=== PATIENT | male | born 1940 | race Caucasian/White ===

== ENCOUNTER 2017-07-11 15:03 | Inpatient (IN) | payer OTHER ==
[2017-07-11 15:56] VITALS: BMI 36.0
[2017-07-11] MEDS ORDERED: HYDROcodone /APAP 5/325 1 EACH TABLET PO PRN (17:23)
[2017-07-11] MEDS: APIXABAN 2.5 MG TABLET PO SCH ×2 (19:05→20:45)
[2017-07-11] MEDS: SENNOSIDES 8.6 MG TABLET PO SCH (19:15)
--- NOTE | 2017-07-11 19:26 | History and Physical Report ---
History of Present Illnes - History of Present Illness Reason for Visit: gait diaturbance following Right TKR History of Present Illness: Patient is a 77-year-old white male who is been having some problems with osteoarthritis to his knees bilaterally. Patient was electrically admitted to the [facility] for a total right knee replacement. Patient did not have any intraoperative or postoperative complications. Patient states it is pain as being well-managed at this time. Patient denies any constipation problems. Patient was subsequently transferred to this institution for further rehab services. 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 Alcohol: Rare Drugs: None Lives: Friends - Health Maintenance Health Maintenance: denies: Influenza Vaccine, Pneumococcal Vaccine Pneumonia Vaccine: No Resuscitation Status: Resusciation Status Resuscitation Status Full Code - Unable to Obtain History Unable to Obtain: No Review of Systems - Review of Systems Constitutional: negative: Fever, Chills, Weakness Eyes: negative: pain, vision change ENT: negative: Ear Pain, Ear Discharge, Nose Pain, Nose Discharge, Nose Congestion, Mouth Pain, Throat Pain Respiratory: negative: Cough, Dry, Shortness of Breath, Hemoptysis, SOB with Excertion, Pleuritic Pain, Sputum, Wheezing Cardiovascular: negative: Chest Pain, Palpitations, Orthopnea, Paroxysmal Noc. Dyspnea, Edema, Light Headedness Gastrointestinal: negative: Nausea, Vomiting, Abdominal Pain, Diarrhea, Constipation, Melena, Hematochezia Genitourinary: Frequency, Incontinence. negative: Dysuria, Hematuria, Retention Musculoskeletal: Leg Pain. negative: Neck Pain, Shoulder Pain Skin: negative: Rash, Lesions Neurological: negative: Weakness, Numbness, Incoordination, Change in Speech, Seizures - Medications/Allergies Allergies/Adverse Reactions: Allergies Allergy/AdvReac Type Severity Reaction Status Date / Time hydrocodone AdvReac Hallucinati Verified 07/11/17 16:17 ons morphine AdvReac Hallucinati Verified 07/11/17 16:17 ons Home Medications: Home Medications Bumetanide [Bumex] 2 mg PO D 07/16/17 Gabapentin 300 mg 07/16/17 HYDROcodone /APAP 5/325 [Devol 5/325] 1 each PO Q4 PRN 07/16/17 Lisinopril [Zestril] 40 mg PO D 07/16/17 Metoprolol Tartrate [Lopressor] 50 mg PO BID 07/16/17 Potassium Chloride [Klor-Con M20] 20 meq PO D 07/16/17 Sennosides [Senna] 8.6 mg PO BID PRN 07/16/17 Simvastatin [Zocor] 20 mg PO HS 07/16/17 Sulfamethoxazole/Trimethoprim [Bactrim DS] 1 tab PO BID 07/16/17 amLODIPine BESYLATE [Norvasc] 5 mg PO 0900 07/16/17 Current Inpatient Medications: Current Inpatient Medications Sennosides (Senokot) 8.6 mg PO DAILY [facility] Last Admin: 07/11/17 19:15 Dose: Not Given Trimethoprim/Sulfamethoxazole (Bactrim Ds) 1 each PO BID [facility] Stop: 07/16/17 20:59 Exam - Exam Vital Signs: Vital Signs (72 hours) 07/11/17 15:12 Temperature 98.4 F Pulse Rate [ 88 Left] Respiratory 20 Rate Blood Pressure 117/75 [Left Arm] General: Alert, Oriented to Person, Oriented to Place, Cooperative. No: Oriented to Time HEENT: Atraumatic, PERRLA, EOMI, Mouth Mucous membr. moist/Rison, Nose Mucous membr. moist/Rison Neck: Normal Range of Motion Carotids: WNL Thyroid: WNL Lungs: Clear to auscultation, Normal air movement, Speaks full Sentences Cardiovascular: Normal S1, Normal S2, No murmurs, Irregularly Irregular. No: Gallops, Rubs Abdomen: Normal bowel sounds, Soft, No tenderness, No hepatospenomegaly, No masses Integumentary: Normal, Rison, Warm, Dry Extremities: No clubbing, No cyanosis, Normal pulses, Other (Edema tothe RLE, incison looks clean) Neurological: Normal speech, Strength Equal Bilat, Normal tone, Sensation intact , Cranial nerves 3-12 NL, Reflexes 2+. No: Normal gait Psych/Mental Status: Mental status NL, Mood NL, Appropriate Affect, Intact Judgment Assessment/Plan - Assessment/Plan (1) Gait disturbance Status: Acute Current Visit: Yes Assessment: PT and OT, continue with polar ice and support stockings. (2) Atrial fibrillation Status: Acute Current Visit: Yes Assessment: Will switch to eliquis since pradaxa is not on formulary (3) Idiopathic peripheral neuropathy Status: Acute Current Visit: Yes Assessment: continue home med (4) Left bundle branch block (LBBB) Status: Acute Current Visit: Yes Assessment: stable (5) CKD (chronic kidney disease) stage 3, GFR 30-59 ml/min Status: Acute Current Visit: Yes Assessment: will continue to monitor VTE Assessment - RISK FACTOR SCORE VTE RISK FACTOR SCORES: AGE OVER 60 YEARS, ANTICIPATED BED CONFINEMENT OR IMMOBILIZATION > 24 HOURS, ELECTIVE KNEE OR HIP ARTHROPLASTY - RISK VTE HIGH RISK: SCORE OF 3-4 (RISK PROXIMAL DVT 4-8%) PROPHYLAXIS NEEDED
[2017-07-11] MEDS: SULFAMETHOXAZOLE/TRIMETHOPRIM 1 EACH TABLET PO SCH (20:42)
[2017-07-12] MEDS ORDERED: MAGNESIUM HYDROXIDE 400 MG/5 ML 30ML UDC PO ONE (08:57)
[2017-07-12] MEDS: SULFAMETHOXAZOLE/TRIMETHOPRIM 1 EACH TABLET PO SCH ×2 (10:29→20:38)
[2017-07-12] MEDS: TOLTERODINE TARTRATE 2 MG CAP.ER.24H PO SCH (10:30)
[2017-07-12] MEDS: GABAPENTIN 300 MG CAPSULE PO SCH ×2 (10:30→20:38)
[2017-07-12] MEDS: POTASSIUM CHLORIDE 20 MEQ TABLET.ER PO SCH (10:30)
[2017-07-12] MEDS: APIXABAN 2.5 MG TABLET PO SCH ×2 (10:30→20:38)
[2017-07-12] MEDS: FUROSEMIDE 40 MG TABLET PO SCH (10:30)
[2017-07-12] MEDS: SENNOSIDES 8.6 MG TABLET PO SCH (10:31)
[2017-07-12] MEDS: amLODIPine BESYLATE 5 MG TABLET PO SCH (10:31)
[2017-07-12] MEDS: LISINOPRIL 20 MG TABLET PO SCH (10:31)
[2017-07-12] MEDS ORDERED: SIMVASTATIN 20 MG TABLET ONE (14:06)
[2017-07-12] MEDS: SIMVASTATIN 20 MG TABLET PO SCH (20:38)
[2017-07-13] MEDS: TOLTERODINE TARTRATE 2 MG CAP.ER.24H PO SCH (08:20)
[2017-07-13] MEDS: SULFAMETHOXAZOLE/TRIMETHOPRIM 1 EACH TABLET PO SCH ×2 (08:20→20:51)
[2017-07-13] MEDS: APIXABAN 2.5 MG TABLET PO SCH ×2 (08:21→20:52)
[2017-07-13] MEDS: FUROSEMIDE 40 MG TABLET PO SCH (08:22)
[2017-07-13] MEDS: POTASSIUM CHLORIDE 20 MEQ TABLET.ER PO SCH (08:22)
[2017-07-13] MEDS: LISINOPRIL 20 MG TABLET PO SCH (08:23)
[2017-07-13] MEDS: GABAPENTIN 300 MG CAPSULE PO SCH ×2 (08:23→20:51)
[2017-07-13] MEDS: amLODIPine BESYLATE 5 MG TABLET PO SCH (08:23)
[2017-07-13] MEDS: ACETAMINOPHEN 325 MG TABLET PO PRN ×2 (08:24→12:38)
[2017-07-13] MEDS: SENNOSIDES 8.6 MG TABLET PO SCH (08:25)
[2017-07-13] MEDS: SIMVASTATIN 20 MG TABLET PO SCH (20:51)
[2017-07-14] MEDS: APIXABAN 2.5 MG TABLET PO SCH ×2 (08:38→21:13)
[2017-07-14] MEDS: SENNOSIDES 8.6 MG TABLET PO SCH (08:38)
[2017-07-14] MEDS: FUROSEMIDE 40 MG TABLET PO SCH (08:40)
[2017-07-14] MEDS: LISINOPRIL 20 MG TABLET PO SCH (08:40)
[2017-07-14] MEDS: SULFAMETHOXAZOLE/TRIMETHOPRIM 1 EACH TABLET PO SCH ×2 (08:40→21:13)
[2017-07-14] MEDS: amLODIPine BESYLATE 5 MG TABLET PO SCH (08:40)
[2017-07-14] MEDS: GABAPENTIN 300 MG CAPSULE PO SCH ×2 (08:40→21:13)
[2017-07-14] MEDS: TOLTERODINE TARTRATE 2 MG CAP.ER.24H PO SCH (08:40)
[2017-07-14] MEDS: POTASSIUM CHLORIDE 20 MEQ TABLET.ER PO SCH (08:40)
[2017-07-14 10:02] LABS: BASOPHILS % 0.3 (0.0-1.5); EOSINOPHILS % 5.4 % (0.0-6.8); MEAN CORPUSCULAR HEMOGLOBIN 30.4 pg (28.0-34.0); MEAN CORPUSCULAR VOLUME 90.4 fl (80.0-100.0); MONOCYTES % 6.8 % (0.0-11.0); NEUTROPHILS # 8.4 # k/uL (1.4-7.7)
[2017-07-14] MEDS: ACETAMINOPHEN 500 MG TABLET PO PRN ×2 (13:43→21:12)
[2017-07-14] MEDS: SIMVASTATIN 20 MG TABLET PO SCH (21:13)
[2017-07-15] MEDS: SULFAMETHOXAZOLE/TRIMETHOPRIM 1 EACH TABLET PO SCH ×2 (08:45→18:12)
[2017-07-15] MEDS: TOLTERODINE TARTRATE 2 MG CAP.ER.24H PO SCH (08:45)
[2017-07-15] MEDS: APIXABAN 2.5 MG TABLET PO SCH ×2 (08:45→18:11)
[2017-07-15] MEDS: FUROSEMIDE 40 MG TABLET PO SCH (08:46)
[2017-07-15] MEDS: POTASSIUM CHLORIDE 20 MEQ TABLET.ER PO SCH (08:46)
[2017-07-15] MEDS: LISINOPRIL 20 MG TABLET PO SCH (08:47)
[2017-07-15] MEDS: GABAPENTIN 300 MG CAPSULE PO SCH ×2 (08:47→18:10)
[2017-07-15] MEDS: amLODIPine BESYLATE 5 MG TABLET PO SCH (08:47)
[2017-07-15] MEDS: SENNOSIDES 8.6 MG TABLET PO SCH (08:48)
[2017-07-15] MEDS: ACETAMINOPHEN 500 MG TABLET PO PRN ×3 (09:08→18:10)
[2017-07-15] MEDS: SIMVASTATIN 20 MG TABLET PO SCH (18:12)
[2017-07-16] MEDS: ACETAMINOPHEN 500 MG TABLET PO PRN ×3 (06:06→19:33)
[2017-07-16] MEDS: APIXABAN 2.5 MG TABLET PO SCH ×2 (11:19→19:33)
[2017-07-16] MEDS: SENNOSIDES 8.6 MG TABLET PO SCH (11:20)
[2017-07-16] MEDS: POTASSIUM CHLORIDE 20 MEQ TABLET.ER PO SCH (11:21)
[2017-07-16] MEDS: SULFAMETHOXAZOLE/TRIMETHOPRIM 1 EACH TABLET PO SCH (11:21)
[2017-07-16] MEDS: FUROSEMIDE 40 MG TABLET PO SCH (11:22)
[2017-07-16] MEDS: GABAPENTIN 300 MG CAPSULE PO SCH ×2 (11:22→19:33)
[2017-07-16] MEDS: amLODIPine BESYLATE 5 MG TABLET PO SCH (11:23)
[2017-07-16] MEDS: TOLTERODINE TARTRATE 2 MG CAP.ER.24H PO SCH (11:23)
[2017-07-16] MEDS: LISINOPRIL 20 MG TABLET PO SCH (11:24)
[2017-07-16 18:52] LABS: APPEARANCE,URINE Clear (CLEAR); COLOR,URINE Yellow (YELLOW); OCCULT BLOOD,URINE Trace-lysed (NEGATIVE); PH URINE 5.5 (5.0 - 8.0); UROBILINOGEN URINE 0.2 Eu (0.2-1.0)
[2017-07-16] MEDS: SIMVASTATIN 20 MG TABLET PO SCH (19:33)
[2017-07-17] MEDS: ACETAMINOPHEN 500 MG TABLET PO PRN ×3 (05:59→20:32)
--- NOTE | 2017-07-17 07:52 | Inpatient Progress Note ---
Subjective - Required Recertification Statement I anticipate X number of days because-include discharge plan: 10 days - Review of Systems Events since last encounter: Patient seems to be doing better at this AM. States that his knee is feeling some better. Objective - Exam Vitals and I&O: Vital Signs Temp 97.9 F 07/16/17 20:49 Pulse 64 07/16/17 21:00 Resp 20 07/16/17 21:00 BP 129/57 07/16/17 20:49 Pulse Ox 92 07/16/17 20:49 Intake & Output 07/16/17 07/16/17 07/17/17 11:59 23:59 11:59 Intake Total 1979 1180 2720 Balance 1979 1180 2720 Weight 107.048 kg Intake: Oral 1979 1180 2720 Other: Voiding Method Toilet Toilet # Voids 8 8 General: Alert, Oriented to Person, Cooperative. No: Oriented to Place, Oriented to Time Neck: Supple, No JVD Lungs: Clear to auscultation, Normal air movement, Speaks full Sentences. No: Respiratory Distress, Wheezes, Rales Cardiovascular: Regular rate, Normal S1, Normal S2, No murmurs Abdomen: Normal bowel sounds, Soft, No tenderness Skin: Other (less swelling, still having some pain at the distal aspect oftheincision, no redness noted. ) Neurological: Normal speech, Strength Equal Bilat - Results Results: Laboratory Results WBC 10.90 K/ul (4.00-12.00) 07/14/17 09:55 RBC 4.06 M/ul (3.90-5.20) 07/14/17 09:55 Hgb 12.3 g/dL (12.0-18.0) 07/14/17 09:55 Hct 36.7 % (37.0-53.0) L 07/14/17 09:55 MCV 90.4 fl (80.0-100.0) 07/14/17 09:55 MCH 30.4 pg (28.0-34.0) 07/14/17 09:55 MCHC 33.6 g/dL (30.0-36.0) 07/14/17 09:55 RDW 13.0 % (11.3-14.3) 07/14/17 09:55 Plt Count 325 K/mm3 (130-400) 07/14/17 09:55 Neut % (Auto) 76.9 % (39.0-79.0) 07/14/17 09:55 Lymph % (Auto) 9.1 % (16.0-50.0) L 07/14/17 09:55 [place] % (Auto) 6.8 % (0.0-11.0) 07/14/17 09:55 Eos % (Auto) 5.4 % (0.0-6.8) 07/14/17 09:55 Baso % (Auto) 0.3 (0.0-1.5) 07/14/17 09:55 Neut # (Auto) 8.4 # k/uL (1.4-7.7) H 07/14/17 09:55 Lymph # (Auto) 1.0 # k/uL (0.6-4.0) 07/14/17 09:55 [place] # (Auto) 0.7 # k/uL (0.0-0.9) 07/14/17 09:55 Eos # (Auto) 0.6 # k/uL (0.0-0.6) 07/14/17 09:55 Baso # (Auto) 0.0 # k/uL (0.0-0.5) 07/14/17 09:55 Reactive Lymphs % 1.5 % (0.0-5.0) 07/14/17 09:55 Reactive Lymphs # 0.2 # k/uL (0.0-0.8) 07/14/17 09:55 Sodium 138 mmol/L (136-145) 07/14/17 09:55 Potassium 4.5 mmol/L (3.5-5.0) 07/14/17 09:55 Chloride 103 mmol/L (98-110) 07/14/17 09:55 Carbon Dioxide 28 mmol/L (20-32) 07/14/17 09:55 BUN 37 mg/dL (10-26) H 07/14/17 09:55 Creatinine 2.2 mg/dL (0.4-1.5) H 07/14/17 09:55 Estimated Creat Clear 43 07/14/17 09:55 Est GFR ( Amer) 38 (60-) L 07/14/17 09:55 Est GFR (Non-Af Amer) 31 (60-) L 07/14/17 09:55 Glucose 124 mg/dL (70-99) H 07/14/17 09:55 Calcium 9.7 mg/dL (8.5-10.5) 07/14/17 09:55 Total Bilirubin 0.8 mg/dL (0.2-1.2) 07/14/17 09:55 AST 29 U/L (0-41) 07/14/17 09:55 ALT 35 U/L (0-45) 07/14/17 09:55 Alkaline Phosphatase 86 U/L (46-116) 07/14/17 09:55 Total Protein 7.0 g/dL (6.0-8.5) 07/14/17 09:55 Albumin 3.8 g/dL (3.0-5.5) 07/14/17 09:55 Urine Color Yellow (YELLOW) 07/16/17 18:45 Urine Appearance Clear (CLEAR) 07/16/17 18:45 Urine pH 5.5 (5.0 - 8.0) 07/16/17 18:45 Ur Specific [place] <=1.005 (1.010-1.030) L 07/16/17 18:45 Urine Protein Negative mg/dL (NEGATIVE) 07/16/17 18:45 Urine Ketones Negative mg/dL (NEGATIVE) 07/16/17 18:45 Urine Occult Blood Trace-lysed (NEGATIVE) 07/16/17 18:45 Urine Nitrite Negative (NEGATIVE) 07/16/17 18:45 Urine Bilirubin Negative (NEGATIVE) 07/16/17 18:45 Urine Urobilinogen 0.2 Eu (0.2-1.0) 07/16/17 18:45 Ur Leukocyte Esterase Trace (NEGATIVE) 07/16/17 18:45 Urine Glucose Negative mg/dL (NEGATIVE) 07/16/17 18:45 Assessment/Plan - Assessment/Plan (1) Gait disturbance Status: Acute Current Visit: Yes Assessment: continue with PT and OT (2) CKD (chronic kidney disease) stage 3, GFR 30-59 ml/min Status: Acute Current Visit: Yes Assessment: will monitor
[2017-07-17] MEDS: SENNOSIDES 8.6 MG TABLET PO SCH ×2 (08:51→20:22)
[2017-07-17] MEDS: APIXABAN 2.5 MG TABLET PO SCH ×2 (08:51→20:30)
[2017-07-17] MEDS: LISINOPRIL 20 MG TABLET PO SCH (08:52)
[2017-07-17] MEDS: GABAPENTIN 300 MG CAPSULE PO SCH ×2 (08:52→20:30)
[2017-07-17] MEDS: POTASSIUM CHLORIDE 20 MEQ TABLET.ER PO SCH (08:52)
[2017-07-17] MEDS: TOLTERODINE TARTRATE 2 MG CAP.ER.24H PO SCH (08:52)
[2017-07-17] MEDS: FUROSEMIDE 40 MG TABLET PO SCH (08:52)
[2017-07-17] MEDS: amLODIPine BESYLATE 5 MG TABLET PO SCH (08:52)
[2017-07-17] MEDS: SIMVASTATIN 20 MG TABLET PO SCH (20:30)
[2017-07-18] MEDS: ACETAMINOPHEN 500 MG TABLET PO PRN ×2 (03:53→19:59)
[2017-07-18] MEDS: APIXABAN 2.5 MG TABLET PO SCH ×2 (08:12→19:57)
[2017-07-18] MEDS: TOLTERODINE TARTRATE 2 MG CAP.ER.24H PO SCH (08:13)
[2017-07-18] MEDS: GABAPENTIN 300 MG CAPSULE PO SCH ×2 (08:14→19:57)
[2017-07-18] MEDS: POTASSIUM CHLORIDE 20 MEQ TABLET.ER PO SCH (08:14)
[2017-07-18] MEDS: amLODIPine BESYLATE 5 MG TABLET PO SCH (08:14)
[2017-07-18] MEDS: LISINOPRIL 20 MG TABLET PO SCH (08:14)
[2017-07-18] MEDS: FUROSEMIDE 40 MG TABLET PO SCH (08:14)
[2017-07-18] MEDS: SIMVASTATIN 20 MG TABLET PO SCH (19:57)
[2017-07-19] MEDS: amLODIPine BESYLATE 5 MG TABLET PO SCH (08:03)
[2017-07-19] MEDS: APIXABAN 2.5 MG TABLET PO SCH ×2 (08:04→20:35)
[2017-07-19] MEDS: POTASSIUM CHLORIDE 20 MEQ TABLET.ER PO SCH (08:05)
[2017-07-19] MEDS: GABAPENTIN 300 MG CAPSULE PO SCH ×2 (08:06→20:35)
[2017-07-19] MEDS: TOLTERODINE TARTRATE 2 MG CAP.ER.24H PO SCH (08:06)
[2017-07-19] MEDS: LISINOPRIL 20 MG TABLET PO SCH (08:07)
[2017-07-19] MEDS: SENNOSIDES 8.6 MG TABLET PO SCH (08:10)
[2017-07-19] MEDS: ACETAMINOPHEN 500 MG TABLET PO PRN ×2 (10:40→20:53)
[2017-07-19] MEDS: FUROSEMIDE 40 MG TABLET PO SCH (10:40)
[2017-07-19 17:01] LABS: ADENOVIRUS F 40/41 Not Detected (Not Detected); ASTROVIRUS Not Detected (Not Detected); C. DIFFICILE (TOXIN A/B) Not Detected (Not Detected); CRYPTOSPORIDIUM Not Detected (Not Detected); CYCLOSPORA CAYETANENSIS Not Detected (Not Detected); ENTAMOEBA HISTOLYTICA Not Detected (Not Detected); GIARDIA LAMBLIA Not Detected (Not Detected); ROTAVIRUS A Not Detected (Not Detected); SAPOVIRUS Not Detected (Not Detected); VIBRIO CHOLERAE Not Detected (Not Detected)
[2017-07-19] MEDS: SIMVASTATIN 20 MG TABLET PO SCH (20:35)
--- NOTE | 2017-07-20 07:59 | Discharge Summary ---
Discharge Summary - Discharge Sumary History of Present Illness: Patient is a 77-year-old white male who is been having some problems with osteoarthritis to his knees bilaterally. Patient was electively admitted to the [facility] for a total right knee replacement. Patient did not have any intraoperative or postoperative complications. Patient states it is pain as being well-managed at this time. Patient denies any constipation problems. Patient was subsequently transferred to this institution for further rehab services. Home Medications: Ambulatory Orders Medication Instructions Recorded Gabapentin 300 mg PO BID 07/16/17 HYDROcodone /APAP 5/325 [[place] 1 each PO Q4 PRN 07/16/17 5/325] Metoprolol Tartrate [Lopressor] 50 mg PO BID 07/16/17 Sennosides [Senna] 8.6 mg PO BID PRN 07/16/17 Simvastatin [Zocor] 20 mg PO HS 07/16/17 amLODIPine BESYLATE [Norvasc] 5 mg PO 0900 07/16/17 Acetaminophen [Tylenol Extra 500 mg PO Q4H PRN tablet 07/27/17 Strength] Consultations this Visit: None Procedures this Visit: None Allergies/Adverse Reactions: Allergies Allergy/AdvReac Type Severity Reaction Status Date / Time hydrocodone AdvReac Hallucinati Verified 07/11/17 16:17 ons morphine AdvReac Hallucinati Verified 07/11/17 16:17 ons Discharge Summary: Patient did well with his physical and occupational therapy. Patient did make improvement with his ability to ambulate transfer safely.Patient peripheral neuropathy remains stable. Patient did continue to have some difficulties and discomfort associated with it. The gabapentin did seem to help some. Patient hypertension remains stable without any chest pain chest pressure TIA or CVA symptom. Patient was noted to have elevated BUN creatinine above his baseline. Initially this was felt to be related to his high Lasix dose and possible dehydration. Patient Lasix was held for several days with no improvement. 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 It was felt that it elevated kidney functions may be related to his recent surgery and perhaps the antibiotic therapy that he is been getting. It was elected to continue to monitor this on a home basis. At the time at discharge it was felt that the patient would benefit from further home health services. These were arranged to patient was discharged in stable condition. - Final Diagnosis (1) Gait disturbance Problems: improved (2) Essential hypertension Problems: Stable on home medications (3) Atrial fibrillation Problems: Stable on home medications (4) Left bundle branch block (LBBB) Problems: stable (6) Acute kidney injury Problems: [place] to be related to his recent surgery and/or antibiotic therapy.This will be monitored with home health.
[2017-07-20] MEDS: SENNOSIDES 8.6 MG TABLET PO SCH (08:21)
[2017-07-20] MEDS: APIXABAN 2.5 MG TABLET PO SCH ×2 (08:21→20:36)
[2017-07-20] MEDS: FUROSEMIDE 40 MG TABLET PO SCH (08:22)
[2017-07-20] MEDS: POTASSIUM CHLORIDE 20 MEQ TABLET.ER PO SCH (08:22)
[2017-07-20] MEDS: TOLTERODINE TARTRATE 2 MG CAP.ER.24H PO SCH (08:22)
[2017-07-20] MEDS: GABAPENTIN 300 MG CAPSULE PO SCH ×2 (08:23→20:36)
[2017-07-20] MEDS: amLODIPine BESYLATE 5 MG TABLET PO SCH (08:23)
[2017-07-20] MEDS: ACETAMINOPHEN 500 MG TABLET PO PRN ×3 (08:24→17:38)
[2017-07-20] MEDS: LISINOPRIL 20 MG TABLET PO SCH (08:24)
[2017-07-20] MEDS: LOPERAMIDE HCL 2 MG CAPSULE PO PRN (12:27)
[2017-07-20] MEDS: SIMVASTATIN 20 MG TABLET PO SCH (20:36)
[2017-07-21] MEDS: ACETAMINOPHEN 500 MG TABLET PO PRN ×4 (02:00→20:03)
[2017-07-21] MEDS: GABAPENTIN 300 MG CAPSULE PO SCH ×2 (09:18→20:03)
[2017-07-21] MEDS: POTASSIUM CHLORIDE 20 MEQ TABLET.ER PO SCH (09:18)
[2017-07-21] MEDS: TOLTERODINE TARTRATE 2 MG CAP.ER.24H PO SCH (09:19)
[2017-07-21] MEDS: SENNOSIDES 8.6 MG TABLET PO SCH (09:19)
[2017-07-21] MEDS: CALCIUM CARB 500 MG TAB.CHEW PO PRN (10:01)
[2017-07-21] MEDS: amLODIPine BESYLATE 5 MG TABLET PO SCH (11:00)
[2017-07-21] MEDS: SIMVASTATIN 20 MG TABLET PO SCH (20:03)
[2017-07-22] MEDS: POTASSIUM CHLORIDE 20 MEQ TABLET.ER PO SCH (09:18)
[2017-07-22] MEDS: TOLTERODINE TARTRATE 2 MG CAP.ER.24H PO SCH (09:18)
[2017-07-22] MEDS: GABAPENTIN 300 MG CAPSULE PO SCH ×2 (09:18→19:57)
[2017-07-22] MEDS: SENNOSIDES 8.6 MG TABLET PO SCH (09:18)
[2017-07-22] MEDS: ACETAMINOPHEN 500 MG TABLET PO PRN ×2 (09:19→19:57)
[2017-07-22] MEDS: SIMVASTATIN 20 MG TABLET PO SCH (19:57)
[2017-07-22] MEDS ORDERED: FUROSEMIDE 40 MG TABLET PO ONE (21:15)
[2017-07-22] MEDS: CALCIUM CARB 500 MG TAB.CHEW PO PRN (22:08)
[2017-07-23] MEDS: FUROSEMIDE 40 MG TABLET PO SCH (09:10)
[2017-07-23] MEDS: POTASSIUM CHLORIDE 20 MEQ TABLET.ER PO SCH (09:10)
[2017-07-23] MEDS: GABAPENTIN 300 MG CAPSULE PO SCH ×2 (09:10→19:28)
[2017-07-23] MEDS: ACETAMINOPHEN 500 MG TABLET PO PRN ×3 (09:11→19:32)
[2017-07-23] MEDS: SENNOSIDES 8.6 MG TABLET PO SCH (09:11)
[2017-07-23] MEDS: TOLTERODINE TARTRATE 2 MG CAP.ER.24H PO SCH (09:11)
[2017-07-23] MEDS: LOPERAMIDE HCL 2 MG CAPSULE PO PRN (13:29)
[2017-07-23] MEDS: SIMVASTATIN 20 MG TABLET PO SCH (19:28)
[2017-07-24] MEDS: TOLTERODINE TARTRATE 2 MG CAP.ER.24H PO SCH (07:50)
[2017-07-24] MEDS: SIMVASTATIN 20 MG TABLET PO SCH (07:51)
[2017-07-24] MEDS: GABAPENTIN 300 MG CAPSULE PO SCH ×2 (07:51→20:47)
[2017-07-24] MEDS: POTASSIUM CHLORIDE 20 MEQ TABLET.ER PO SCH (07:51)
[2017-07-24] MEDS: FUROSEMIDE 40 MG TABLET PO SCH (07:52)
[2017-07-24] MEDS: ACETAMINOPHEN 500 MG TABLET PO PRN ×2 (07:54→20:48)
[2017-07-24] MEDS ORDERED: FUROSEMIDE 20 MG/2 ML VIAL IM SCH (09:00)
[2017-07-24 10:23] LABS: APPEARANCE,URINE Clear (CLEAR); COLOR,URINE Yellow (YELLOW); OCCULT BLOOD,URINE Trace-lysed (NEGATIVE); UROBILINOGEN URINE 0.2 Eu (0.2-1.0)
[2017-07-24] MEDS: SENNOSIDES 8.6 MG TABLET PO SCH (10:50)
[2017-07-25] MEDS: GABAPENTIN 300 MG CAPSULE PO SCH ×2 (07:49→20:23)
[2017-07-25] MEDS: SENNOSIDES 8.6 MG TABLET PO SCH (07:49)
[2017-07-25] MEDS: POTASSIUM CHLORIDE 20 MEQ TABLET.ER PO SCH (07:49)
[2017-07-25] MEDS: TOLTERODINE TARTRATE 2 MG CAP.ER.24H PO SCH (07:49)
--- NOTE | 2017-07-25 08:09 | Inpatient Progress Note ---
Subjective - Required Recertification Statement I anticipate X number of days because-include discharge plan: 7 days - Review of Systems Events since last encounter: Patient seems to be doing well, continues ot have some swelling in the right leg. Has hbeen having some urinary frequency at [facility] but has been drinking 3 liters of fluids at [facility] also. Last noc tried not to drink anything and the urinary frequenc got a lot better. Last labs continues to show some elevation in his BUN and Creatinine. Patient states that his mouth feels dry all the time. HEENT: Denies: Head Aches Cardiovascular: Denies: Chest Pain Gastrointestinal: Denies: Nausea, Vomiting, Abdominal Pain, Diarrhea, Constipation Genitourinary: Frequency, Incontinence. Denies: Dysuria Objective - Exam Vitals and I&O: Vital Signs Temp 97.9 F 07/24/17 21:00 Pulse 111 H 07/24/17 21:00 Resp 20 07/24/17 21:00 BP 127/88 07/24/17 21:00 Pulse Ox 96 07/24/17 21:00 Intake & Output 07/24/17 07/24/17 07/25/17 11:59 23:59 11:59 Intake Total 480 2520 Balance 480 2520 Weight 105.46 kg 105.7 kg Intake: Oral 480 2520 Other: Voiding Method Toilet Toilet # Voids 16 6 General: Alert, Oriented to Person, Oriented to Place, Oriented to Time, Cooperative, No acute distress Neck: Supple, No JVD Lungs: Clear to auscultation, Normal air movement, Speaks full Sentences. No: Respiratory Distress, Wheezes, Rales, Rhonchi Cardiovascular: Regular rate, Normal S1, Normal S2, No murmurs Abdomen: Normal bowel sounds, Soft, No tenderness Extremities: No clubbing, Other (edema to the LLE) Skin: Normal, [place], Warm, Dry Neurological: Normal gait, Normal speech, Strength Equal Bilat, Normal tone, Sensation intact, Cranial nerves 3-12 NL Psych/Mental Status: Mental status NL, Mood NL, Appropriate Affect - Results Results: Laboratory Results WBC 10.90 K/ul (4.00-12.00) 07/14/17 09:55 RBC 4.06 M/ul (3.90-5.20) 07/14/17 09:55 Hgb 12.3 g/dL (12.0-18.0) 07/14/17 09:55 Hct 36.7 % (37.0-53.0) L 07/14/17 09:55 MCV 90.4 fl (80.0-100.0) 07/14/17 09:55 MCH 30.4 pg (28.0-34.0) 07/14/17 09:55 MCHC 33.6 g/dL (30.0-36.0) 07/14/17 09:55 RDW 13.0 % (11.3-14.3) 07/14/17 09:55 Plt Count 325 K/mm3 (130-400) 07/14/17 09:55 Neut % (Auto) 76.9 % (39.0-79.0) 07/14/17 09:55 Lymph % (Auto) 9.1 % (16.0-50.0) L 07/14/17 09:55 [place] % (Auto) 6.8 % (0.0-11.0) 07/14/17 09:55 Eos % (Auto) 5.4 % (0.0-6.8) 07/14/17 09:55 Baso % (Auto) 0.3 (0.0-1.5) 07/14/17 09:55 Neut # (Auto) 8.4 # k/uL (1.4-7.7) H 07/14/17 09:55 Lymph # (Auto) 1.0 # k/uL (0.6-4.0) 07/14/17 09:55 [place] # (Auto) 0.7 # k/uL (0.0-0.9) 07/14/17 09:55 Eos # (Auto) 0.6 # k/uL (0.0-0.6) 07/14/17 09:55 Baso # (Auto) 0.0 # k/uL (0.0-0.5) 07/14/17 09:55 Reactive Lymphs % 1.5 % (0.0-5.0) 07/14/17 09:55 Reactive Lymphs # 0.2 # k/uL (0.0-0.8) 07/14/17 09:55 Sodium 140 mmol/L (136-145) 07/24/17 06:00 Potassium 5.0 mmol/L (3.5-5.0) 07/24/17 06:00 Chloride 107 mmol/L (98-110) 07/24/17 06:00 Carbon Dioxide 25 mmol/L (20-32) 07/24/17 06:00 BUN 32 mg/dL (10-26) H 07/24/17 06:00 Creatinine 2.9 mg/dL (0.4-1.5) H 07/24/17 06:00 Estimated Creat Clear 32 07/24/17 06:00 Est GFR ( Amer) 27 (60-) L 07/24/17 06:00 Est GFR (Non-Af Amer) 23 (60-) L 07/24/17 06:00 Glucose 106 mg/dL (70-99) H 07/24/17 06:00 Estimat Average Glucose 103 mg/dL 07/24/17 06:00 Hemoglobin A1c 5.2 % (4.0-5.6) 07/24/17 06:00 Calcium 10.2 mg/dL (8.5-10.5) 07/24/17 06:00 Total Bilirubin 0.8 mg/dL (0.2-1.2) 07/14/17 09:55 AST 29 U/L (0-41) 07/14/17 09:55 ALT 35 U/L (0-45) 07/14/17 09:55 Alkaline Phosphatase 86 U/L (46-116) 07/14/17 09:55 Total Protein 7.0 g/dL (6.0-8.5) 07/14/17 09:55 Albumin 3.8 g/dL (3.0-5.5) 07/14/17 09:55 Urine Color Yellow (YELLOW) 07/24/17 10:20 Urine Appearance Clear (CLEAR) 07/24/17 10:20 Urine pH 5.0 (5.0 - 8.0) 07/24/17 10:20 Ur Specific [place] <=1.005 (1.010-1.030) L 07/24/17 10:20 Urine Protein Negative mg/dL (NEGATIVE) 07/24/17 10:20 Urine Ketones Negative mg/dL (NEGATIVE) 07/24/17 10:20 Urine Occult Blood Trace-lysed (NEGATIVE) 07/24/17 10:20 Urine Nitrite Negative (NEGATIVE) 07/24/17 10:20 Urine Bilirubin Negative (NEGATIVE) 07/24/17 10:20 Urine Urobilinogen 0.2 Eu (0.2-1.0) 07/24/17 10:20 Ur Leukocyte Esterase Trace (NEGATIVE) 07/24/17 10:20 Urine RBC 0-2 (0-2 HPF) 07/24/17 10:20 Urine WBC 2-5 (0-5 HPF) 07/24/17 10:20 Urine WBC Clumps Present (NEGATIVE) H 07/24/17 10:20 Ur Squamous Epith Cells Few (NEG-FEW) 07/24/17 10:20 Urine Bacteria Few (NEGATIVE) H 07/24/17 10:20 Urine Glucose Negative mg/dL (NEGATIVE) 07/24/17 10:20 Stl C. cayetanensis PCR Not detected (Not Detected) 07/19/17 09:50 Stool Rotavirus (PCR) Not detected (Not Detected) 07/19/17 09:50 Stool Astrovirus (PCR) Not detected (Not Detected) 07/19/17 09:50 Stool Campylobacter PCR Not detected (Not Detected) 07/19/17 09:50 Stool Cryptosporidium PCR Not detected (Not Detected) 07/19/17 09:50 Stl E.coli Shiga Toxins Not detected (Not Detected) 07/19/17 09:50 Stool E.coli 0157 Cult Not detected (Not Detected) 07/19/17 09:50 Stl Aggregat E Coli PCR Not detected (Not Detected) 07/19/17 09:50 Stl E. histolytica PCR Not detected (Not Detected) 07/19/17 09:50 Stool Giardia Lamblia PCR Not detected (Not Detected) 07/19/17 09:50 Stool Sapovirus (PCR) Not detected (Not Detected) 07/19/17 09:50 Stl P. shigelloides PCR Not detected (Not Detected) 07/19/17 09:50 St Y.enterocolitica PCR Not detected (Not Detected) 07/19/17 09:50 Stool Vibrio (PCR) Not detected (Not Detected) 07/19/17 09:50 Stl Vibrio cholerae PCR Not detected (Not Detected) 07/19/17 09:50 Stl Norovirus GI/GII PCR Not detected (Not Detected) 07/19/17 09:50 Adenovirus (PCR) Not detected (Not Detected) 07/19/17 09:50 C. diff Tox Assay (Ref) Not detected (Not Detected) 07/19/17 09:50 E. coli (PCR) Not detected (Not Detected) 07/19/17 09:50 Escherichia coli 0157 Not detected (Not Detected) 07/19/17 09:50 Salmonella (PCR) Not detected (Not Detected) 07/19/17 09:50 Assessment/Plan - Assessment/Plan (1) Gait disturbance Status: Acute Current Visit: Yes Assessment: stable, making improvement with PT and OT (2) CKD (chronic kidney disease) stage 3, GFR 30-59 ml/min Status: Acute Current Visit: Yes Assessment: BUN and Creatinie appear to be elevated some more. As far as I can tell baseline Creatinine was around 0.7 at the [place]. I believe patient is getting dehydrated. Will stop lasix for several dasy and then restart at a lower dose. Will recheck labs. (3) History of arthroplasty of left knee Status: Acute Current Visit: Yes Assessment: seems to be healing well at this time.
[2017-07-25] MEDS: APIXABAN 2.5 MG TABLET PO SCH ×2 (11:17→20:23)
[2017-07-25] MEDS: SIMVASTATIN 20 MG TABLET PO SCH (20:23)
[2017-07-25] MEDS: ACETAMINOPHEN 500 MG TABLET PO PRN (20:25)
[2017-07-26] MEDS ORDERED: FUROSEMIDE 20 MG TABLET PO ONE (00:55)
[2017-07-26] MEDS: POTASSIUM CHLORIDE 20 MEQ TABLET.ER PO SCH (07:54)
[2017-07-26] MEDS: APIXABAN 2.5 MG TABLET PO SCH ×2 (07:54→20:07)
[2017-07-26] MEDS: TOLTERODINE TARTRATE 2 MG CAP.ER.24H PO SCH (07:54)
[2017-07-26] MEDS: GABAPENTIN 300 MG CAPSULE PO SCH ×2 (07:54→20:07)
[2017-07-26] MEDS: FUROSEMIDE 20 MG TABLET PO SCH (07:54)
[2017-07-26] MEDS: SENNOSIDES 8.6 MG TABLET PO SCH (07:55)
[2017-07-26] MEDS: ACETAMINOPHEN 500 MG TABLET PO PRN ×2 (07:59→17:52)
[2017-07-26] MEDS: SIMVASTATIN 20 MG TABLET PO SCH (20:07)
[2017-07-27] MEDS: GABAPENTIN 300 MG CAPSULE PO SCH (09:37)
[2017-07-27] MEDS: TOLTERODINE TARTRATE 2 MG CAP.ER.24H PO SCH (09:37)
[2017-07-27] MEDS: SENNOSIDES 8.6 MG TABLET PO SCH (09:38)
[2017-07-27] MEDS: FUROSEMIDE 20 MG TABLET PO SCH (09:38)
[2017-07-27] MEDS: APIXABAN 2.5 MG TABLET PO SCH (09:38)
[2017-07-27] MEDS: ACETAMINOPHEN 500 MG TABLET PO PRN (09:41)
[2017-07-27 10:18] VITALS: BP 127/67
== END 2017-07-27 10:42 | disposition home or self-care (01) | DRG 93 ==
LOC: SOUTH 15:03
PROVIDERS: ADMIT Family Medicine; ATTEND Family Medicine
DX: R26.9 Unspecified abnormalities of gait and mobility (principal); Z96.651 Presence of right artificial knee joint; I10 Essential (primary) hypertension; I48.91 Unspecified atrial fibrillation; I44.7 Left bundle-branch block, unspecified
CPT/HCPCS: 36415; 80048; 80053; 81002; 83036; 85025; 87086; 87507; A9270; A9270-GY

== ENCOUNTER 2017-07-25 15:49 | Outpatient (CLI) | payer OTHER ==
[2017-07-25 11:33] VITALS: BP 129/55
== END 2017-07-25 15:50 ==
LOC: NEPHRO 15:49
PROVIDERS: ATTEND Internal Medicine Nephrology
DX: S51.009D Unspecified open wound of unspecified elbow, subsequent encounter (principal); X58.XXXA Exposure to other specified factors, initial encounter; Y93.9 Activity, unspecified; Y99.9 Unspecified external cause status
CPT/HCPCS: 99213